=== PATIENT | male | born 1935 ===

== ENCOUNTER 2018-01-05 17:09 | Emergency (ER) | payer OTHER ==
--- NOTE | 2018-01-05 17:33 | CPEKG ---
Heart Rate: 55 RR Interval: 1091 P-R Interval: 160 QRSD Interval: 80 QT Interval: 408 QTC Interval: 391 P [place]: 39 QRS [place]: 28 T Wave [place]: 93 EKG Severity - NORMAL ECG - EKG Impression: SINUS RHYTHM Electronically Signed By: Marissa Garber 05-Jan-2018 22:54:40
[2018-01-05 17:45] LABS: PLATELET COUNT 187 10^3/uL (150-400)
--- NOTE | 2018-01-05 18:08 | EDPHY ---
H & P Stated Complaint: left sided arm/chest pain Time Seen by Provider: 01/05/18 17:44 HPI/ROS: CHIEF COMPLAINT: Chest and back pain HISTORY OF PRESENT ILLNESS: The patient is an anticoagulated 82 y/o male with cardiac disease post CABG complaining of acute onset left-sided chest pain and back pain that began a few hours ago after lunch. He noticed this discomfort while lounging at home. He has some associated nausea and bloating and took some GasX to treat this. He was able to go on his daily 45-minute walk without aggravating the pain. His symptoms have improved, though he still has some mild discomfort. He has not had pain like this previously, even before his CABG. He denies dyspnea, diaphoresis, radiation into arm or jaw, leg swelling, trauma of left shoulder, recent illness, or other complaints. REVIEW OF SYSTEMS: A ten point review of systems was performed and is negative with the exception of the items mentioned in the HPI. Past medical history: 1. Hypertension 2. Hyperlipidemia Past surgical history: 1. CABG over 20 years ago Family history: Noncontributory Social history: [facility] patient. Nonsmoker. No alcohol use. 45-minute walk every day. General Appearance: Alert. Vital signs reviewed. Blood pressure 115/74, heart rate 58. Eyes: Pupils equal and round, no conjunctival injection, no discharge. Anicteric. ENT, Mouth: Mucous membranes are moist, no oropharyngeal erythema or edema. Neck: No lymphadenopathy, supple. Respiratory: Lungs are clear to auscultation; no wheezes, rales, or rhonchi. Cardiovascular: Regular rate and rhythm; no murmur, rub, or gallop. Gastrointestinal: Abdomen is soft and nontender, no masses or organomegaly. Skin: Warm and dry, no rashes on exposed skin, normal color. Back: Nontender to palpation over the thoracolumbar spine. No CVAT. Extremities: No lower extremity edema, no calf tenderness or swelling. Neurological: Alert and oriented. Moving all four extremities easily and equally. Psychiatric: Normal affect. - Personal History Current Tetanus/Diphtheria Vaccine: Yes Current Tetanus Diphtheria and Acellular Pertussis (TDAP): Yes Tetanus Vaccine Date: < 10 years - Medical/Surgical History Hx Asthma: No Hx Chronic Respiratory Disease: No Hx Diabetes: No Hx Cardiac Disease: Yes Hx Renal Disease: No Hx Cirrhosis: No Hx Alcoholism: No Hx HIV/AIDS: No Hx Splenectomy or Spleen Trauma: No Other PMH: HTN, CABG, hyperlipidemia - Social History Smoking Status: Never smoked Constitutional: Initial Vital Signs Temperature (C) 36.3 C 01/05/18 17:13 Heart Rate 58 L 01/05/18 17:13 Respiratory Rate 20 01/05/18 17:13 Blood Pressure 159/74 H 01/05/18 17:13 O2 Sat (%) 97 01/05/18 17:13 O2 Delivery Mode Room Air Allergies/Adverse Reactions: No Known Allergies Allergy (Unverified 01/05/18 17:11) Home Medications: Medication Instructions Recorded Aggrenox 01/05/18 Atenolol 01/05/18 Lisinopril 01/05/18 Niacin 01/05/18 SIMVASTATIN 01/05/18 Medical Decision Making - Diagnostics EKG Interpretation: 12 lead EKG is interpreted in Trace master View by emergency department physician. Imaging: I viewed and interpreted images myself ED Course/Re-evaluation: This is a well-appearing 82 y/o male with cardiac disease post CABG presenting with a few-hour history of acute onset left-sided chest pain and back pain that has since improved. His exam is unremarkable. Plan for standard cardiac work up including IV, labs, EKG, and chest x-ray. The 12 lead EKG was interpreted by myself. Sinus bradycardia. See hard copy and/ or "tracemaster" electronic copy for interpretation. Labs including troponin are normal. Chest x-ray reviewed by me--no acute pulmonary disease. Radiology report also reviewed. Reassessed patient and discussed work up. He reports his symptoms are almost completely gone. Due to his cardiac history, I recommended admission for serial troponins and provocative cardiac testing, but he is reluctant to do this and would like to follow up as an outpatient. Discussed the risks and benefits of leaving here and he is comfortable going home. He understands that cardiac etiology has not been ruled out and that he is at risk for heart attack and even . He is capable of making his own medical decisions. Strict return precautions discussed. Differential Diagnosis: Chest pain including but not limited to myocardial ischemia, pulmonary embolus, chest wall pain, pleural inflammation and pulmonary infectious causes. - Data Points Laboratory Results: Laboratory Results 01/05/18 17:26 01/05/18 17:26 Departure - Departure Disposition: Home, Routine, Self-Care Clinical Impression: Chest pain Qualifiers: Chest pain type: other chest pain Qualified Code(s): R07.89 - Other chest pain ; R07.8 - Other chest pain Condition: Good Instructions: Chest Pain (ED) Additional Instructions: Follow up with your [facility] this week. I recommend calling first thing tomorrow morning to schedule this appointment. Bring the paperwork from your visit today to that appointment. Return to the ED for chest pain, shortness of breath, lightheadedness, fainting, or any other worsening of condition. Referrals: [facility] [Provider Group] - As per Instructions Report Scribed for: Marissa Garber Report Scribed by: Gilma Mckeon Date of Report: 01/05/18 Time of Report: 18:39 Physician Review and Approval Statement: 01/05/18 18:08 Portions of this note were transcribed by the medical dermatologist. I, Dr. Marissa Garber, personally performed the history, physical exam, and medical decision- making; and confirmed the accuracy of the information in the transcribed note.
[2018-01-05 18:30] VITALS: BP 178/71
== END 2018-01-05 18:54 | disposition home or self-care (01) ==
DX: R07.89 Other chest pain (principal); I10 Essential (primary) hypertension